=== PATIENT | male | born 1935 | race Caucasian/White ===

== ENCOUNTER 2019-01-05 10:10 | Inpatient (IN) | payer MEDICARE ==
[~2019-01-05] VITALS: Ht 175.3 cm; Wt 90.9 kg
[~2019-01-05 10:10] MED LIST: ANTI1CAP5; ASPI-1265 PO; LOSA25TA96 PO; OMEP20CA11 PO; SIMV20TA5 PO; VITA-268 PO
[2019-01-05] MEDS ORDERED: aspirin 81mg tab.chew PO ONE (10:20)
[2019-01-05 10:41] LABS: BASOPHILS % (AUTO) 0.8 % (0-1); EOSINOPHILS # (AUTO) 0.2 X10'3 (0-0.9); HEMATOCRIT 43.9 % (42.0-52.0); LYMPHOCYTES # (AUTO) 1.8 X10'3 (1.1-4.8); LYMPHOCYTES % (AUTO) 29.5 % (21-51); MEAN CORPUSCULAR HEMOGLOBIN 32.1 PG (27.0-31.0); MEAN CORPUSCULAR HGB CONC 34.1 g/dL (33.0-36.5); MEAN PLATELET VOLUME 7.5 FL (7.4-10.4); MONOCYTES # (AUTO) 0.5 X10'3 (0-0.9); MONOCYTES % (AUTO) 8.8 % (2-12); NEUTROPHILS # (AUTO) 3.4 X10'3 (1.8-7.7); NEUTROPHILS % (AUTO) 56.9 % (42-75); PLATELET COUNT 257 X10'3 (140-440); RED BLOOD COUNT 4.67 X10'6 (4.70-6.10); RED CELL DISTRIBUTION WIDTH 14.5 % (11.5-14.5); WHITE BLOOD COUNT 5.9 X10'3 (4.5-11.0)
[2019-01-05 10:51] LABS: PARTIAL THROMBOPLASTIN TIME 28 SECONDS (22-32)
[2019-01-05 10:53] LABS: ALANINE AMINOTRANSFERASE 31 U/L (12-78); ALBUMIN 3.7 G/DL (3.4-5.0); ALKALINE PHOSPHATASE 70 IU/L (46-116); ANION GAP 9 (8-16); ASPARTATE AMINO TRANSFERASE 18 U/L (10-37); BILIRUBIN,TOTAL 0.7 MG/DL (0.1-1.0); BLOOD UREA NITROGEN 10 MG/DL (7-18); BUN/CREATININE RATIO 8.7 (5.4-32.0); CALCIUM 8.4 MG/DL (8.5-10.1); CHLORIDE 105 MMOL/L (99-107); CREATININE 1.15 MG/DL (0.60-1.10); GLUCOSE 114 MG/DL (70-104); POTASSIUM 4.6 MMOL/L (3.5-5.1); SODIUM 141 MMOL/L (135-145); TOTAL PROTEIN 7.4 G/DL (6.4-8.2); eGFR 61 ML/MIN
[2019-01-05] MEDS ORDERED: enoxaparin 100mg/ml syringe SUBCUT ONE (11:00)
[2019-01-05] MEDS ORDERED: acetaminophen 325mg tablet PO PRN ×2 (11:10)
[2019-01-05] MEDS ORDERED: potassium Cl 20 mEq SR tablet PO PRN ×2 (11:10)
[2019-01-05] MEDS ORDERED: morphine 2 MG/ML inj. syringe IV PRN (11:10)
[2019-01-05] MEDS ORDERED: magnesium 2GM in 50ml NS 50 ML IV PRN (11:10)
[2019-01-05] MEDS ORDERED: HYDROcodone/acetaminophen 5mg/325mg tablet PO PRN (11:10)
[2019-01-05] MEDS ORDERED: nitroGLYCERIN 0.4mg SUBLingual tab SL PRN (11:10)
[2019-01-05] MEDS ORDERED: potassium CL 10mEq/100ml bag 100 ML IV PRN ×2 (11:10)
[2019-01-05] MEDS ORDERED: ondansetron/PF 4mg/2ml inj IV PRN (11:10)
[2019-01-05] MEDS ORDERED: regadenoson 0.4mg/5ml syringe IV PRN (11:10)
[2019-01-05] MEDS ORDERED: aminophylline 250mg/10ml inj. IV PRN (11:10)
[2019-01-05] MEDS ORDERED: magnesium 4gm in 100ml NS 100 ML IV PRN (11:10)
[2019-01-05] MEDS ORDERED: magnesium Cl slow-release 64mg tablet PO PRN (11:10)
[2019-01-05] MEDS ORDERED: metoprolol tartrate 1mg/ml inj IV PRN (11:10)
[2019-01-05] MEDS ORDERED: metoprolol tartrate 1mg/ml inj IV ONE (11:15)
[2019-01-05] MEDS: normal saline 1000ml 1,000 ML IV SCH (11:28)
--- NOTE | 2019-01-05 11:40 | NUR ---
Patient in room ED 3. I have received report from Marsha DEE and had the opportunity to ask questions and assume patient care. Patient to be transferred to room 311.
[2019-01-05] MEDS ORDERED: LORazepam 2 mg/ml vial IV PRN (11:55)
[2019-01-05] MEDS ORDERED: LORazepam 1 MG tablet PO PRN (11:55)
--- NOTE | 2019-01-05 12:00 | NUR ---
Patient arrived to room 311 at this time.
[2019-01-05 12:15] VITALS: BP 130/80
--- NOTE | 2019-01-05 12:34 | NUR ---
Paged Echo and Nuc med to call back, waiting to hear from them. Patient NPO.
[2019-01-05 13:07] LABS: MAGNESIUM 2.2 MG/DL (1.5-2.4)
[2019-01-05 15:00] VITALS: BP 157/63
[2019-01-05 18:00] VITALS: BP 157/66
--- NOTE | 2019-01-05 18:15 | NUR ---
Problems reprioritized. Patient report given, questions answered & plan of care reviewed with Sami DEE. Echo at bedside.
[2019-01-05] MEDS: heparin, porcine 5000 units/ml vial SQ SCH (19:57)
[2019-01-05] MEDS: docusate sod 100mg capsule PO SCH (19:58)
--- NOTE | 2019-01-05 20:41 | NUR ---
PAGER ID: [phone] MESSAGE: Jamison Centeno room 311, 30 beat run of V tach . K is 4.6 and Mg is 2.2.
--- NOTE | 2019-01-05 20:42 | NUR ---
PAGER ID: [phone] MESSAGE: PAGER ID: [phone] MESSAGE: Jamison Centeno room 311, 30 beat run of V tach . K is 4.6 and Mg is 2.2. Its Sami Mackenzie-LUIZ [id number]. Addendum: 01/05/19 at [address]01 by Sami [address]enzie RN Dr. Brito called back and ordered the TSH. Mention to watch the patient and if the patient had v tach, page him again. No other orders were given at this time.
[2019-01-05] MEDS ORDERED: temazepam 15mg capsule PO PRN (21:00)
[2019-01-05 22:00] VITALS: BP 156/60
[2019-01-06] VITALS (14 sets, daily range): BP systolic 121–158; BP diastolic 51–67
[2019-01-06 02:12] LABS: BASOPHILS # (AUTO) 0.1 X10'3 (0-0.2); BASOPHILS % (AUTO) 1.2 % (0-1); EOSINOPHILS # (AUTO) 0.3 X10'3 (0-0.9); EOSINOPHILS % (AUTO) 4.9 % (0-6); HEMATOCRIT 40.8 % (42.0-52.0); HEMOGLOBIN 13.8 g/dl (14.0-17.9); LYMPHOCYTES % (AUTO) 35.5 % (21-51); MEAN CORPUSCULAR HEMOGLOBIN 31.7 PG (27.0-31.0); MEAN CORPUSCULAR HGB CONC 33.9 g/dL (33.0-36.5); MEAN CORPUSCULAR VOLUME 93.6 FL (78-98); MEAN PLATELET VOLUME 7.3 FL (7.4-10.4); MONOCYTES # (AUTO) 0.5 X10'3 (0-0.9); NEUTROPHILS # (AUTO) 2.8 X10'3 (1.8-7.7); NEUTROPHILS % (AUTO) 49.4 % (42-75); PLATELET COUNT 219 X10'3 (140-440); RED BLOOD COUNT 4.36 X10'6 (4.70-6.10); RED CELL DISTRIBUTION WIDTH 14.1 % (11.5-14.5); WHITE BLOOD COUNT 5.7 X10'3 (4.5-11.0)
[2019-01-06 02:35] LABS: ALBUMIN 3.2 G/DL (3.4-5.0); ANION GAP 8 (8-16); BLOOD UREA NITROGEN 12 MG/DL (7-18); BUN/CREATININE RATIO 9.6 (5.4-32.0); CHLORIDE 107 MMOL/L (99-107); CHOL/HDL RATIO 3.1 (0.00-4.99); CHOLESTEROL 135 MG/DL (0-200); CREATININE 1.25 MG/DL (0.60-1.10); GLUCOSE 115 MG/DL (70-104); HDL CHOLESTEROL 44 MG/DL (35-60); LDL CHOLESTEROL 79 MG/DL (50-100); POTASSIUM 3.8 MMOL/L (3.5-5.1); SODIUM 141 MMOL/L (135-145); TRIGLYCERIDES 126 MG/DL (20-135); eGFR 55 ML/MIN
--- NOTE | 2019-01-06 03:15 | NUR ---
PAGER ID: [phone] MESSAGE: 311 Jacobo Swift, 7 beat run v tach at 2306. AM lab K 3.8, Mg 2.0, TSH 3.43. FYI patient is scheduled for Lexiscan this morning. Luis. [id number]
[2019-01-06] MEDS ORDERED: amiodarone 150mg/dext, iso-os 100 ML IV ONE (03:20)
[2019-01-06] MEDS: potassium Cl 20 mEq SR tablet PO SCH ×2 (03:57→07:36)
[2019-01-06] MEDS: magnesium Cl slow-release 64mg tablet PO SCH ×3 (03:57→20:53)
--- NOTE | 2019-01-06 06:14 | NUR ---
Problems reprioritized. Patient report given, questions answered & plan of care reviewed with Luisito.
--- NOTE | 2019-01-06 06:15 | NUR ---
Gave report to Karolina. All questions were answered.
[2019-01-06] MEDS: pantoprazole 40mg Tablet.DR PO SCH (07:34)
[2019-01-06] MEDS: aspirin 81mg tab.chew PO SCH (07:35)
[2019-01-06] MEDS: amiodarone 200mg tablet PO SCH ×2 (07:35→20:53)
[2019-01-06] MEDS: docusate sod 100mg capsule PO SCH ×2 (07:35→20:53)
[2019-01-06] MEDS: atorvastatin 20mg tablet PO SCH (07:35)
[2019-01-06] MEDS: heparin, porcine 5000 units/ml vial SQ SCH ×2 (07:37→20:53)
[2019-01-06] MEDS: K and/or MAG REPLACEMENT MC SCH (07:53)
[2019-01-06] MEDS ORDERED: losartan 25mg tablet PO SCH (08:00)
[2019-01-06] MEDS ORDERED: losartan 25mg tablet PO ONE (09:10)
[2019-01-07] VITALS (7 sets, daily range): BP systolic 120–166; BP diastolic 50–68
[2019-01-07 04:50] LABS: EOSINOPHILS # (AUTO) 0.2 X10'3 (0-0.9); EOSINOPHILS % (AUTO) 4.4 % (0-6); HEMATOCRIT 42.2 % (42.0-52.0); HEMOGLOBIN 14.3 g/dl (14.0-17.9); LYMPHOCYTES # (AUTO) 1.7 X10'3 (1.1-4.8); LYMPHOCYTES % (AUTO) 34.6 % (21-51); MEAN CORPUSCULAR HGB CONC 33.9 g/dL (33.0-36.5); MEAN CORPUSCULAR VOLUME 94.5 FL (78-98); MEAN PLATELET VOLUME 7.8 FL (7.4-10.4); MONOCYTES # (AUTO) 0.6 X10'3 (0-0.9); MONOCYTES % (AUTO) 11.1 % (2-12); NEUTROPHILS # (AUTO) 2.4 X10'3 (1.8-7.7); NEUTROPHILS % (AUTO) 48.9 % (42-75); PLATELET COUNT 228 X10'3 (140-440); RED BLOOD COUNT 4.46 X10'6 (4.70-6.10); RED CELL DISTRIBUTION WIDTH 14.4 % (11.5-14.5)
[2019-01-07 04:57] LABS: ALBUMIN 3.2 G/DL (3.4-5.0); ANION GAP 9 (8-16); BLOOD UREA NITROGEN 13 MG/DL (7-18); BUN/CREATININE RATIO 11.8 (5.4-32.0); CALCIUM 9.1 MG/DL (8.5-10.1); CHLORIDE 108 MMOL/L (99-107); GLUCOSE 125 MG/DL (70-104); MAGNESIUM 2.3 MG/DL (1.5-2.4); SODIUM 141 MMOL/L (135-145); TOTAL CARBON DIOXIDE 23.9 MMOL/L (24-32); eGFR 64 ML/MIN
--- NOTE | 2019-01-07 06:45 | NUR ---
Problems reprioritized. Patient report given, questions answered & plan of care reviewed with CORAL DEE.
--- NOTE | 2019-01-07 07:05 | NUR ---
Patient in room MED 311. I have received report from LUIZ Robles and had the opportunity to ask questions and assume patient care.
--- NOTE | 2019-01-07 07:05 | NUR ---
Received report from LUIZ Robles
[2019-01-07] MEDS: K and/or MAG REPLACEMENT MC SCH (08:00)
[2019-01-07] MEDS: docusate sod 100mg capsule PO SCH ×2 (09:06→20:04)
[2019-01-07] MEDS: amiodarone 200mg tablet PO SCH ×2 (09:06→20:04)
[2019-01-07] MEDS: aspirin 81mg tab.chew PO SCH (09:06)
[2019-01-07] MEDS: losartan 50mg tablet PO SCH (09:07)
[2019-01-07] MEDS: potassium Cl 20 mEq SR tablet PO SCH (09:07)
[2019-01-07] MEDS: atorvastatin 20mg tablet PO SCH (09:08)
[2019-01-07] MEDS: heparin, porcine 5000 units/ml vial SQ SCH ×2 (09:09→20:05)
[2019-01-07] MEDS: magnesium Cl slow-release 64mg tablet PO SCH ×2 (09:09→20:04)
[2019-01-07] MEDS: spironolactone 25 MG tablet PO SCH (09:10)
[2019-01-07] MEDS: pantoprazole 40mg Tablet.DR PO SCH (09:10)
--- NOTE | 2019-01-07 10:00 | NUR ---
Student documentation and med administration: I have reviewed and agree with all interventions, assessments performed and documented by Shae GOLDBERG.
[2019-01-07] MEDS: normal saline 1000ml 1,000 ML IV SCH (11:10)
--- NOTE | 2019-01-07 16:36 | NUR ---
Yumiko hospitalist, "Sudha 8263- Rm. 311 was fitted for his lifevest FYI." Received callback re: plan for discharge tomorrow
--- NOTE | 2019-01-07 18:58 | NUR ---
Problems reprioritized. Patient report given, questions answered & plan of care reviewed with LUIZ Gallardo and Vance.
[2019-01-08 02:00] VITALS: BP 148/54
[2019-01-08 04:55] LABS: BASOPHILS % (AUTO) 0.7 % (0-1); EOSINOPHILS # (AUTO) 0.3 X10'3 (0-0.9); EOSINOPHILS % (AUTO) 5.5 % (0-6); HEMATOCRIT 41.7 % (42.0-52.0); HEMOGLOBIN 14.2 g/dl (14.0-17.9); LYMPHOCYTES # (AUTO) 1.8 X10'3 (1.1-4.8); LYMPHOCYTES % (AUTO) 30.8 % (21-51); MEAN CORPUSCULAR VOLUME 94.2 FL (78-98); MONOCYTES # (AUTO) 0.6 X10'3 (0-0.9); MONOCYTES % (AUTO) 9.8 % (2-12); NEUTROPHILS # (AUTO) 3.1 X10'3 (1.8-7.7); NEUTROPHILS % (AUTO) 53.2 % (42-75); PLATELET COUNT 243 X10'3 (140-440); RED BLOOD COUNT 4.43 X10'6 (4.70-6.10); RED CELL DISTRIBUTION WIDTH 14.6 % (11.5-14.5); WHITE BLOOD COUNT 5.9 X10'3 (4.5-11.0)
[2019-01-08 05:08] LABS: ALBUMIN 3.3 G/DL (3.4-5.0); ANION GAP 8 (8-16); BLOOD UREA NITROGEN 13 MG/DL (7-18); BUN/CREATININE RATIO 12.4 (5.4-32.0); CHLORIDE 108 MMOL/L (99-107); CREATININE 1.05 MG/DL (0.60-1.10); GLUCOSE 118 MG/DL (70-104); MAGNESIUM 2.4 MG/DL (1.5-2.4); POTASSIUM 4.1 MMOL/L (3.5-5.1); SODIUM 141 MMOL/L (135-145); TOTAL CARBON DIOXIDE 24.8 MMOL/L (24-32); eGFR 68 ML/MIN
[2019-01-08 06:00] VITALS: BP 164/62
--- NOTE | 2019-01-08 06:27 | NUR ---
Gave report to Karolina. All questions were answered.
--- NOTE | 2019-01-08 06:44 | NUR ---
Received report from LUIZ Lr
--- NOTE | 2019-01-08 06:57 | NUR ---
Patient in room MED 311. I have received report from Sami and had the opportunity to ask questions and assume patient care.
[2019-01-08 07:52] VITALS: BP 147/60
[2019-01-08] MEDS: K and/or MAG REPLACEMENT MC SCH (08:00)
[2019-01-08] MEDS: pantoprazole 40mg Tablet.DR PO SCH (08:19)
[2019-01-08] MEDS: docusate sod 100mg capsule PO SCH (08:20)
[2019-01-08] MEDS: aspirin 81mg tab.chew PO SCH (08:20)
[2019-01-08] MEDS: amiodarone 200mg tablet PO SCH (08:21)
[2019-01-08] MEDS: losartan 50mg tablet PO SCH (08:21)
[2019-01-08] MEDS: potassium Cl 20 mEq SR tablet PO SCH (08:22)
[2019-01-08] MEDS: atorvastatin 20mg tablet PO SCH (08:23)
[2019-01-08] MEDS: magnesium Cl slow-release 64mg tablet PO SCH (08:24)
[2019-01-08] MEDS: spironolactone 25 MG tablet PO SCH (08:26)
[2019-01-08] MEDS: heparin, porcine 5000 units/ml vial SQ SCH (08:26)
[2019-01-08 11:16] VITALS: BP 135/59
[2019-01-08] MEDS ORDERED: NITR0.4T51 SL (11:32)
[2019-01-08] MEDS ORDERED: AMIO200T61 PO (11:32)
[2019-01-08] MEDS ORDERED: LOSA50TA64 PO (11:32)
[2019-01-08] MEDS ORDERED: SPIR25TA PO (11:32)
--- NOTE | 2019-01-08 13:39 | NUR ---
pt provided all discharge instructions and f/u appt scheduled with dr. joe,prescriptions phoned into [facility] [address],information sheets provided,SL dc'd with tip intact from [facility],site clear,pt discharged home with all belongings
== END 2019-01-08 13:50 | disposition home or self-care (01) | DRG 280 ==
LOC: ER 10:12 → ED HOLD 11:27 → MED 3N 12:09
PROVIDERS: ADMIT Internal Medicine; ATTEND Family Medicine
PROC: 4A02XM4 Measurement of Cardiac Total Activity, External Approach (ICD-10-PCS; principal; 2019-01-06)
PROC: 3E033HZ Introduction of Radioactive Substance into Peripheral Vein, Percutaneous Approach (ICD-10-PCS; 2019-01-06)
DX: I21.A1 Myocardial infarction type 2 (principal); I50.21 Acute systolic (congestive) heart failure; I13.0 Hypertensive heart and chronic kidney disease with heart failure and stage 1 through stage 4 chronic kidney disease, or unspecified chronic kidney disease; I47.2 Ventricular tachycardia; I42.9 Cardiomyopathy, unspecified; N17.9 Acute kidney failure, unspecified; E86.9 Volume depletion, unspecified; N18.3 Chronic kidney disease, stage 3 (moderate); E03.9 Hypothyroidism, unspecified; E78.5 Hyperlipidemia, unspecified; G43.109 Migraine with aura, not intractable, without status migrainosus; H54.61 Unqualified visual loss, right eye, normal vision left eye; I25.10 Atherosclerotic heart disease of native coronary artery without angina pectoris; I35.0 Nonrheumatic aortic (valve) stenosis; K21.9 Gastro-esophageal reflux disease without esophagitis; K43.9 Ventral hernia without obstruction or gangrene; Z79.899 Other long term (current) drug therapy; Z86.73 Personal history of transient ischemic attack (TIA), and cerebral infarction without residual deficits; Z87.442 Personal history of urinary calculi; I25.2 Old myocardial infarction; Z87.891 Personal history of nicotine dependence; Z90.49 Acquired absence of other specified parts of digestive tract; Z95.1 Presence of aortocoronary bypass graft; Z88.1 Allergy status to other antibiotic agents; Z79.82 Long term (current) use of aspirin
CPT/HCPCS: 36415; 71045; 78452; 80048; 80053; 80061; 83735; 83880; 84443; 84484; 85025; 85610; 85730; 87081; 93005; 93017; 93306; 96372; 99285; A9500; G0378; J0280; J0282; J1644; J1650; J2785; J7030

== ENCOUNTER 2020-07-22 15:17 | Emergency (ER) | payer MEDICARE ==
[~2020-07-22] VITALS: Ht 177.8 cm; Wt 88.0 kg
[~2020-07-22 15:17] MED LIST changes: +AMIO200T61 PO; -LOSA25TA96 PO; +LOSA50TA64 PO; +NITR0.4T51 SL; -OMEP20CA11 PO; +OMEP20CA15 PO; +SIMV-42 PO; -SIMV20TA5 PO; +SPIR25TA PO
[2020-07-22 17:42] LABS: ALANINE AMINOTRANSFERASE 27 U/L (12-78); ALBUMIN 3.9 G/DL (3.4-5.0); ALBUMIN/GLOBULIN RATIO 1.1 (1.1-1.5); ALKALINE PHOSPHATASE 80 IU/L (46-116); ANION GAP 9 (8-16); ASPARTATE AMINO TRANSFERASE 18 U/L (10-37); BILIRUBIN,TOTAL 0.8 MG/DL (0.1-1.0); BLOOD UREA NITROGEN 17 MG/DL (7-18); CALCIUM 8.5 MG/DL (8.5-10.1); CHLORIDE 103 MMOL/L (99-107); CREATININE 1.31 MG/DL (0.60-1.10); GLUCOSE 100 MG/DL (70-104); POTASSIUM 4.1 MMOL/L (3.5-5.1); SODIUM 139 MMOL/L (135-145); TOTAL PROTEIN 7.4 G/DL (6.4-8.2); eGFR 52 ML/MIN
[2020-07-22 18:10] VITALS: BP 159/61
== END 2020-07-22 17:56 | disposition home or self-care (01) ==
LOC: ER 15:18
DX: S86.812A Strain of other muscle(s) and tendon(s) at lower leg level, left leg, initial encounter (principal); I25.10 Atherosclerotic heart disease of native coronary artery without angina pectoris; I25.2 Old myocardial infarction; K21.9 Gastro-esophageal reflux disease without esophagitis; Z87.442 Personal history of urinary calculi; Z90.49 Acquired absence of other specified parts of digestive tract; Z98.890 Other specified postprocedural states; Z88.1 Allergy status to other antibiotic agents; Z79.82 Long term (current) use of aspirin; Z79.899 Other long term (current) drug therapy; X58.XXXA Exposure to other specified factors, initial encounter; Y93.89 Activity, other specified; Y92.89 Other specified places as the place of occurrence of the external cause; Y99.8 Other external cause status
CPT/HCPCS: 36415; 80053; 85610; 93971; 96372; 99284

== ENCOUNTER 2021-07-14 15:20 | Inpatient (IN) | payer MEDICARE ==
[~2021-07-14] VITALS: Ht 175.3 cm; Wt 95.0 kg
[2021-07-14 16:10] LABS: BASOPHILS % (AUTO) 0.6 % (0-1); EOSINOPHILS % (AUTO) 0.3 % (0-6); HEMATOCRIT 37.5 % (42.0-52.0); HEMOGLOBIN 12.4 g/dl (14.0-17.9); LYMPHOCYTES % (AUTO) 11.8 % (21-51); MEAN CORPUSCULAR HGB CONC 33.1 g/dL (33.0-36.5); MEAN CORPUSCULAR VOLUME 90.5 FL (78-98); MEAN PLATELET VOLUME 8.2 FL (7.4-10.4); MONOCYTES # (AUTO) 1.1 X10'3 (0-0.9); MONOCYTES % (AUTO) 13.6 % (2-12); NEUTROPHILS % (AUTO) 73.7 % (42-75); PLATELET COUNT 318 X10'3 (140-440); RED BLOOD COUNT 4.14 X10'6 (4.70-6.10); RED CELL DISTRIBUTION WIDTH 14.5 % (11.5-14.5); WHITE BLOOD COUNT 8.1 X10'3 (4.5-11.0)
[2021-07-14 16:20] LABS: D-DIMER 0.97 MG/L FEU (0-0.50)
[2021-07-14 16:24] LABS: ALANINE AMINOTRANSFERASE 40 U/L (12-78); ALBUMIN 3.3 G/DL (3.4-5.0); ALKALINE PHOSPHATASE 80 IU/L (46-116); ANION GAP 12 (8-16); ASPARTATE AMINO TRANSFERASE 18 U/L (10-37); BILIRUBIN,TOTAL 1.1 MG/DL (0.1-1.0); BLOOD UREA NITROGEN 26 MG/DL (7-18); BUN/CREATININE RATIO 21.5 (5.4-32.0); CALCIUM 8.4 MG/DL (8.5-10.1); CHLORIDE 104 MMOL/L (99-107); CREATININE 1.21 MG/DL (0.60-1.10); GLUCOSE 126 MG/DL (70-104); POTASSIUM 4.7 MMOL/L (3.5-5.1); SODIUM 135 MMOL/L (135-145); TOTAL CARBON DIOXIDE 19.4 MMOL/L (24-32); TOTAL PROTEIN 6.6 G/DL (6.4-8.2); eGFR 57 ML/MIN
[2021-07-14] MEDS ORDERED: furosemide 10 MG/1 ML 10ml inj IV ONE (16:50)
[2021-07-14] MEDS ORDERED: potassium Cl 20 mEq SR tablet PO STA (16:50)
--- NOTE | 2021-07-14 17:03 | NUR ---
Pt pleasant, no chest pain present. No apparent distress or needs at this time.
[2021-07-14] MEDS ORDERED: LOP12.5T PO (17:23)
[2021-07-14] MEDS ORDERED: FURO-150 PO (17:23)
[2021-07-14] MEDS ORDERED: LOSA100T57 PO (17:23)
[2021-07-14] MEDS ORDERED: ondansetron/PF 4mg/2ml inj IV PRN (17:40)
[2021-07-14] MEDS ORDERED: magnesium 2GM in 50ml NS 50 ML IV PRN (17:40)
[2021-07-14] MEDS ORDERED: LORazepam 2 mg/ml vial IV PRN (17:40)
[2021-07-14] MEDS ORDERED: potassium CL 10mEq/100ml bag 100 ML IV PRN (17:40)
[2021-07-14] MEDS ORDERED: haloperidol lactate 5mg/ml inj IM PRN (17:40)
[2021-07-14] MEDS ORDERED: heparin 10,000 units/1 ML INJ IV PRN (17:40)
[2021-07-14] MEDS ORDERED: potassium Cl 20 mEq SR tablet PO PRN ×2 (17:40)
[2021-07-14] MEDS ORDERED: acetaminophen 325mg tablet PO PRN (17:40)
[2021-07-14] MEDS ORDERED: magnesium 4gm in 100ml NS 100 ML IV PRN (17:40)
[2021-07-14] MEDS ORDERED: naloxone 0.4 mg/ml inj IV PRN (17:40)
[2021-07-14] MEDS ORDERED: LORazepam 1 MG tablet PO PRN (17:40)
[2021-07-14] MEDS ORDERED: mag hydrox/Alum hydrox/simeth 30ml oral suspension PO PRN (17:40)
[2021-07-14] MEDS ORDERED: heparin 25,000 UNIT/250ml bag 250 ML IV SCH (17:40)
[2021-07-14] MEDS ORDERED: haloperidol 5mg tablet PO PRN (17:40)
[2021-07-14] MEDS ORDERED: heparin 10,000 units/1 ML INJ IV ONE (17:40)
[2021-07-14] MEDS ORDERED: PERFLUTREN PROTEIN-A MICROSPHR (Optison) 0.22 MG/ML 3ML VIAL IV PRN (17:40)
--- NOTE | 2021-07-14 17:59 | NUR ---
Echo at bedside
[2021-07-14 18:07] LABS: APTT 29 SECONDS (22-32)
--- NOTE | 2021-07-14 18:32 | NUR ---
Paged Dr. Godinez regarding patient's elevating Troponin levels. Patient's recent levels at 1905 and trending up. No new orders, starting Heparin drip as previously ordered.
[2021-07-14 19:11] LABS: BASOPHILS % (AUTO) 0.6 % (0-1); EOSINOPHILS % (AUTO) 0.6 % (0-6); HEMATOCRIT 37.9 % (42.0-52.0); HEMOGLOBIN 12.8 g/dl (14.0-17.9); LYMPHOCYTES # (AUTO) 1.3 X10'3 (1.1-4.8); LYMPHOCYTES % (AUTO) 17.2 % (21-51); MEAN CORPUSCULAR HEMOGLOBIN 30.8 PG (27.0-31.0); MEAN CORPUSCULAR HGB CONC 33.8 g/dL (33.0-36.5); MEAN CORPUSCULAR VOLUME 91.4 FL (78-98); MEAN PLATELET VOLUME 7.9 FL (7.4-10.4); MONOCYTES # (AUTO) 0.9 X10'3 (0-0.9); MONOCYTES % (AUTO) 11.9 % (2-12); NEUTROPHILS # (AUTO) 5.4 X10'3 (1.8-7.7); NEUTROPHILS % (AUTO) 69.7 % (42-75); PLATELET COUNT 303 X10'3 (140-440); RED BLOOD COUNT 4.15 X10'6 (4.70-6.10); RED CELL DISTRIBUTION WIDTH 14.4 % (11.5-14.5); WHITE BLOOD COUNT 7.8 X10'3 (4.5-11.0)
[2021-07-14] MEDS: metoprolol tartrate 25mg tablet PO SCH (20:00)
[2021-07-14] MEDS: K and/or MAG REPLACEMENT MC SCH (20:00)
[2021-07-14] MEDS: docusate sod 100mg capsule PO SCH (20:00)
[2021-07-14] MEDS ORDERED: atorvastatin 20mg tablet PO SCH (21:00)
[2021-07-15 00:52] VITALS: BP 131/58
[2021-07-15 02:00] VITALS: BP 120/60
[2021-07-15 06:00] VITALS: BP 136/63
[2021-07-15 06:42] LABS: ALANINE AMINOTRANSFERASE 37 U/L (12-78); ALBUMIN 3.4 G/DL (3.4-5.0); ALKALINE PHOSPHATASE 79 IU/L (46-116); ANION GAP 11 (8-16); ASPARTATE AMINO TRANSFERASE 21 U/L (10-37); BILIRUBIN,TOTAL 1.2 MG/DL (0.1-1.0); BLOOD UREA NITROGEN 29 MG/DL (7-18); BUN/CREATININE RATIO 23.2 (5.4-32.0); CALCIUM 8.6 MG/DL (8.5-10.1); CHLORIDE 103 MMOL/L (99-107); CHOL/HDL RATIO 2.5 (0.00-4.99); CHOLESTEROL 98 MG/DL (0-200); CREATININE 1.25 MG/DL (0.60-1.10); GLUCOSE 132 MG/DL (70-104); HDL CHOLESTEROL 40 MG/DL (35-60); LDL CHOLESTEROL 50 MG/DL (50-100); LIPASE 176 U/L (73-393); MAGNESIUM 2.4 MG/DL (1.5-2.4); PHOSPHORUS 5.3 MG/DL (2.3-4.5); POTASSIUM 4.1 MMOL/L (3.5-5.1); SODIUM 136 MMOL/L (135-145); TOTAL CARBON DIOXIDE 22.3 MMOL/L (24-32); TOTAL PROTEIN 6.8 G/DL (6.4-8.2); TRIGLYCERIDES 75 MG/DL (20-135); eGFR 55 ML/MIN
[2021-07-15 06:43] LABS: BASOPHILS # (AUTO) 0.1 X10'3 (0-0.2); BASOPHILS % (AUTO) 0.8 % (0-1); EOSINOPHILS # (AUTO) 0.1 X10'3 (0-0.9); EOSINOPHILS % (AUTO) 1.2 % (0-6); HEMATOCRIT 38.3 % (42.0-52.0); LYMPHOCYTES # (AUTO) 1.7 X10'3 (1.1-4.8); LYMPHOCYTES % (AUTO) 18.8 % (21-51); MEAN CORPUSCULAR HEMOGLOBIN 31.1 PG (27.0-31.0); MEAN CORPUSCULAR HGB CONC 33.9 g/dL (33.0-36.5); MEAN CORPUSCULAR VOLUME 91.6 FL (78-98); MEAN PLATELET VOLUME 8.5 FL (7.4-10.4); MONOCYTES % (AUTO) 11.4 % (2-12); NEUTROPHILS # (AUTO) 6.1 X10'3 (1.8-7.7); NEUTROPHILS % (AUTO) 67.8 % (42-75); PLATELET COUNT 306 X10'3 (140-440); RED BLOOD COUNT 4.18 X10'6 (4.70-6.10); RED CELL DISTRIBUTION WIDTH 14.5 % (11.5-14.5)
[2021-07-15] MEDS ORDERED: furosemide 10 MG/1 ML 10ml inj IV SCH (08:00)
[2021-07-15] MEDS ORDERED: multivitamins, therapeutics tablet PO SCH (08:00)
[2021-07-15] MEDS ORDERED: losartan 50mg tablet PO SCH (08:00)
[2021-07-15] MEDS ORDERED: pantoprazole 40mg Tablet.DR PO SCH (08:00)
[2021-07-15] MEDS: docusate sod 100mg capsule PO SCH (08:00)
[2021-07-15] MEDS: K and/or MAG REPLACEMENT MC SCH (08:00)
[2021-07-15] MEDS ORDERED: non-formulary drug (Vitamin B Complex (B Complex) 1 EACH) PO SCH (08:00)
[2021-07-15] MEDS ORDERED: spironolactone 25 MG tablet PO SCH (08:30)
[2021-07-15] MEDS: metoprolol tartrate 25mg tablet PO SCH (08:37)
[2021-07-15 11:00] VITALS: BP 95/50
[2021-07-15] MEDS ORDERED: FURO40TA4 PO (12:32)
--- NOTE | 2021-07-15 14:32 | NUR ---
Discharge instructions discussed with patient. All questions answered. Pt states he understands all instructions. Pt will leave unit via wheelchair.
[2021-07-19] MEDS ORDERED: thiamine 100mg tablet PO SCH (08:00)
[2021-07-19] MEDS ORDERED: folic acid 1mg tablet PO SCH (08:00)
== END 2021-07-15 14:45 | disposition home or self-care (01) | DRG 280 ==
LOC: ER 15:21 → ED HOLD 17:42 → UNDOADMIN 17:46 → EDBEDREQ 07-15 00:03 → PCU 3S 07-15 00:35
PROVIDERS: ADMIT Family Medicine; ATTEND Family Medicine
DX: I50.23 Acute on chronic systolic (congestive) heart failure (principal); I21.A1 Myocardial infarction type 2; N17.0 Acute kidney failure with tubular necrosis; E78.5 Hyperlipidemia, unspecified; I25.10 Atherosclerotic heart disease of native coronary artery without angina pectoris; N18.9 Chronic kidney disease, unspecified; K21.9 Gastro-esophageal reflux disease without esophagitis; I25.2 Old myocardial infarction; Z86.73 Personal history of transient ischemic attack (TIA), and cerebral infarction without residual deficits; Z95.1 Presence of aortocoronary bypass graft
CPT/HCPCS: 36415; 71045; 80053; 80061; 83690; 83735; 83880; 84100; 84484; 85025; 85379; 85610; 85730; 87081; 93005; 93306; 96374; 99285; G0378; J1644; J1940